=== PATIENT | male | born 1950 | race Caucasian/White ===

== ENCOUNTER 2024-02-02 10:13 | Day surgery (SDC) | payer BC, SELFPAY ==
[2024-02-02 10:40] VITALS: BMI 29.3
[2024-02-02 10:52] LABS: INR 1.07; Prothrombin Time 11.3 sec (9.0-11.6)
[2024-02-02 10:54] LABS: Partial Thromboplastin Time 28.5 sec (22.3-36.2)
--- NOTE | 2024-02-02 11:12 | ECG_ITS ---
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
[2024-02-02 11:14] VITALS: BP 155/97; PULSE 65; TEMP 36.3; O2SAT 97; BMI 29.3
[2024-02-02] MEDS: KETOROLAC TROMETHAMINE 30 MG/ML VIAL IVP (11:26)
[2024-02-02] MEDS: LACTATED RINGER'S SOLUTION 1,000 ML 50 ML IV (11:49)
--- NOTE | 2024-02-02 13:21 | W.PC.ACHO ---
Registration Status: REG SDC Primary Language: Ethiopian Preferred Language: Active Medications Generic Name Dose Route Start Last Admin Trade Name Freq PRN Reason Stop Dose Admin Lactated Ringer's 1,000 mls @ 50 mls/hr 02/02/24 12:00 02/02/24 11:49 Lactated Ringers IV 50 mls/hr .Q20H EMY Administration IV Insertion/Site Date of IV Line Insertion [22g 02/02/24 left Forearm] IV Insertion Time [22g left 11:00 Forearm] Respiratory Pulse Oximetry 97 Oxygen Delivery Method Room Air Bowels Date of Last Bowel Movement 02/01/24
--- NOTE | 2024-02-02 13:21 | SUR.PREOP ---
PT HAS NEW DIAGNOSIS OF AFIB ON EKG. ANESTHESIA DISCUSSED WITH PT AND SURGEON. OR CANCELLED. PT TO ER PER CART AT 1310. PPooja ELLER RN
[2024-02-02 13:29] LABS: Troponin I High Sensitivity 11.9 pg/mL (4.0-76.1)
== END 2024-02-02 11:30 | disposition home or self-care (01) ==
PROVIDERS: Anesthesiology; PCP Internal Medicine; Visit Provider Urology
DX: N20.1 Calculus of ureter (principal); Z53.8 Procedure and treatment not carried out for other reasons; I48.91 Unspecified atrial fibrillation; Z96.659 Presence of unspecified artificial knee joint; Z87.891 Personal history of nicotine dependence; K76.89 Other specified diseases of liver; Z79.02 Long term (current) use of antithrombotics/antiplatelets
CPT/HCPCS: 52353; 36415; 71045; 80048; 83880; 84443; 84484; 85025; 85610; 85730; 93005; 99285

== ENCOUNTER 2024-02-02 13:12 | Emergency (ER) | payer BC, SELFPAY ==
[2024-02-02] VITALS (17 sets, daily range): BP systolic 123–143; BP diastolic 73–108; PULSE 89–118; TEMP 36.7; O2SAT 95–97; BMI 29.2
--- NOTE | 2024-02-02 13:21 | ECG_ITS ---
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
--- NOTE | 2024-02-02 13:22 | XR_ITS ---
The [address] [address] Patient Name: SANKET LUCIO MRN: [id number] date: 1950 Sex: M Assigned Patient Location: ED.MAIN Current Patient Location: ED.MAIN Accession/Order Number: [id number] Exam Date: 02/02/2024 13:30 Report Date: 02/02/2024 13:53 At the request of: MAGEN BINGHAM Procedure: XR chest 1V EXAMINATION: XR chest 1V HISTORY: New onset A-fib COMPARISON: No relevant comparison available. FINDINGS: LUNGS: Mild haziness within left lung base adjacent the heart and diaphragm margin. VASCULATURE: No increased pulmonary vasculature. PLEURA: No pneumothorax, effusion, or pleural thickening. CARDIAC: Borderline cardiomegaly. MEDIASTINUM: No visible mass or adenopathy. BONES: No fracture or visible bone lesion. OTHER: Negative. XR/XR chest 1V IMPRESSION: 1. Trace amount of lingular infiltrates versus prominent pericardial fat pad. No prior studies for comparison. Electronically authenticated by: ALBERT OLMOS Date: 02/02/2024 13:53
--- NOTE | 2024-02-02 13:24 | ED_ITS ---
HPI - Arrhythmia/Palpitations General Chief Complaint: Arrhythmia/Palpitations Stated Complaint: AFIB Time Seen by Provider: 02/02/24 13:13 Source: patient and family Mode of arrival: Cart History of Present Illness HPI narrative: 73-year-old male presents to the emergency department for an irregular heartbeat. He was sent from surgery, he was going to have cystoscopy today but was noted to have an irregular heartbeat. He has no history of atrial fibrillation. He has no palpitations or shortness of breath or chest pain. He does not feel dizzy or lightheaded. Related Data Home Medications ?Medication ?Instructions ?Recorded ?Confirmed amlodipine 5 mg tablet mg 02/02/24 aspirin 81 mg capsule 81 mg PO DAILY 02/02/24 02/02/24 ciprofloxacin HCl 500 mg tablet mg 02/02/24 hydrochlorothiazide 12.5 mg tablet mg 02/02/24 lisinopril 20 mg tablet mg 02/02/24 Allergies Allergy/AdvReac Type Severity Reaction Status Date / Time adhesive tape Allergy Verified 02/02/24 11:06 Review of Systems ROS Narrative A ten point review of systems is negative except as noted above. [facility] Medical History (Updated 02/02/24 @ 15:11 by Candido Reno MD) DVT (deep venous thrombosis) ?I82.409 - Acute embolism and thrombosis of unspecified deep veins of unspecified lower extremity (ICD-10) TIA (transient ischemic attack) ?G45.9 - Transient cerebral ischemic attack, unspecified (ICD-10) Surgical History (Updated 02/02/24 @ 11:00 by Francesca Bernard) History of tonsillectomy ?Z90.89 - Acquired absence of other organs (ICD-10) History of total bilateral knee replacement ?Z96.653 - Presence of artificial knee joint, bilateral (ICD-10) Family History (Updated 02/02/24 @ 11:01 by Francesca Bernard) Other Family history of cancer Family history of hypertension Social History (Updated 02/02/24 @ 11:02 by Francesca Meyers) Within the past year, how often did you have a drink containing alcohol: 4 or more times a week Within the past year, how many standard drinks containing alcohol did you have on a typical day: 1 or 2 Total score: 0 Score interpretation: A score less than 4 is consistent with normal alcohol consumption. Smoking status: Former smoker Non-prescribed substance use: denies use Previous occupational history: retired Highest level of school completed/degree received: Bachelor's degree Exam Narrative Exam Narrative: Nurses note and vital signs reviewed and patient is not hypoxic. General: The patient appears well and in no apparent distress. Patient is resting comfortably on cart. Skin: Warm, dry, no pallor noted. There is no rash noted. Head: Normocephalic, atraumatic Eye: Normal conjunctiva, no drainage Ears, Nose, Mouth, and Throat: oral mucosa is moist. Nares patent. Cardiovascular: Irregularly irregular, not tachycardic Respiratory: Lungs are clear with equal breath sounds Back: non-tender GI: Soft and nontender Musculoskeletal: The patient has no evidence of calf tenderness, no pitting edema, symmetrical pulses noted bilaterally Neurological: A&O, normal speech Psychiatric: Cooperative Constitutional Vital Signs, click to edit/add: Last Vital Signs Temp 98.0 F 02/02/24 13:14 Pulse 113 H 02/02/24 13:14 Resp 18 02/02/24 13:14 BP 123/73 02/02/24 13:14 Pulse Ox 97 02/02/24 13:14 O2 Del Method Room Air 02/02/24 13:14 Course Vital Signs Vital signs: Vital Signs Temperature 98.0 F 02/02/24 13:14 Pulse Rate 113 H 02/02/24 13:14 Respiratory Rate 18 02/02/24 13:14 Blood Pressure 123/73 02/02/24 13:14 Pulse Oximetry 97 02/02/24 13:14 Oxygen Delivery Method Room Air 02/02/24 13:14 Temperature 98.0 F 02/02/24 13:14 Pulse Rate 113 H 02/02/24 13:14 Respiratory Rate 18 02/02/24 13:14 Blood Pressure 123/73 02/02/24 13:14 Pulse Oximetry 97 02/02/24 13:14 Oxygen Delivery Method Room Air 02/02/24 13:14 MDM - Arrhythmia/Palpitations MDM Narrative Medical decision making narrative: The patient has new onset atrial fibrillation with well-controlled rate. Case discussed with cardiology and follow-up is arranged. No blood thinner was recommended by cardiology at this point. Treatment diagnosis and follow-up were discussed with the patient and his . Differential Diagnosis Differential diagnosis: Likely other (Atrial fibrillation, atrial flutter) Lab Data Attestation: I reviewed the patient's lab results. Labs: Lab Results 02/02/24 Range/Units 13:00 WBC 12.6 H (4.0-11.0) 10^3/uL RBC 4.84 (4.70-6.10) 10^6/uL Hgb 13.6 L (14.0-18.0) g/dL Hct 41.9 L (42.0-54.0) % MCV 86.6 (80.0-94.0) fL MCH 28.1 (25.9-34.0) pg MCHC 32.5 (29.9-35.2) g/dL RDW 15.8 H (11.0-15.0) % Plt Count 181 (150-450) 10^3/uL MPV 10.6 (9.5-13.5) fL Neut % (Auto) 87.0 H (43.0-75.0) % Lymph % (Auto) 6.0 L (20.5-60.0) % [place] % (Auto) 6.3 (1.7-12.0) % Eos % (Auto) 0.1 L (0.9-7.0) % Baso % (Auto) 0.2 (0.2-2.0) % Neut # (Auto) 11.0 H (1.4-6.5) 10^3/uL Lymph # (Auto) 0.8 L (1.2-3.8) 10^3/uL [place] # (Auto) 0.8 (0.3-0.8) 10^3/uL Eos # (Auto) 0.0 (0.0-0.7) 10^3/uL Baso # (Auto) 0.0 (0.0-0.1) 10^3/uL Abs Immat Gran (auto) 0.05 H (0.00-0.03) 10^3/uL Imm/Tot Granulo (auto) 0.4 (0.0-0.5) % Sodium 144 (136-145) mmol/L Potassium 3.8 (3.5-5.1) mmol/L Chloride 108 H (98-107) mmol/L Carbon Dioxide 25.9 (21.0-32.0) mmol/L Anion Gap 13.9 BUN 28.0 H (7.0-18.0) mg/dL Creatinine 1.79 H (0.70-1.30) mg/dL Est GFR ( Amer) 45 L (>=60) Est GFR (Non-Af Amer) 37 L (>=60) BUN/Creatinine Ratio 15.6 Glucose 126 H (74-106) mg/dL Calcium 8.6 (8.5-10.1) mg/dL Imaging Data Chest x-ray: Radiologist's impression: ITS Impressions Chest X-Ray 02/02/24 13:22 IMPRESSION: 1. Trace amount of lingular infiltrates versus prominent pericardial fat pad. No prior studies for comparison. Electronically authenticated by: ALBERT OLMOS Date: 02/02/2024 13:53 ECG Data Attestation: I personally reviewed and interpreted this ECG as follows: (EKG on my interpretation shows atrial fibrillation with a rate of 108) Discharge Plan Discharge Stand Alone Forms: Portal Instructions Chief Complaint: Arrhythmia/Palpitations Clinical Impression: Atrial fibrillation, new onset Patient Disposition: Home, Self-Care Time of Disposition Decision: 15:11 Condition: Good Mode of Transportation: Private Vehicle Prescriptions / Home Meds: No Action lisinopril 20 mg tablet amlodipine 5 mg tablet ciprofloxacin HCl 500 mg tablet hydrochlorothiazide 12.5 mg tablet aspirin 81 mg capsule 81 mg PO DAILY Print Language: Jamaican Instructions: A-fib (Atrial Fibrillation) (ED) Referrals: Nena Andrade MD [Physician] - 1 week MICHELLE ANAYA [Primary Care Provider] - 1 week
[2024-02-02 13:27] LABS: Basophils Percent Auto 0.2 % (0.2-2.0); Eosinophils Percent Auto 0.1 % (0.9-7.0); Hematocrit 41.9 % (42.0-54.0); Hemoglobin 13.6 g/dL (14.0-18.0); Immature Granulocytes Abs Auto 0.05 10^3/uL (0.00-0.03); Immature Granulocytes Pct Auto 0.4 % (0.0-0.5); Lymphocytes Absolute Auto 0.8 10^3/uL (1.2-3.8); Mean Corpuscular HGB Conc 32.5 g/dL (29.9-35.2); Mean Corpuscular Hemoglobin 28.1 pg (25.9-34.0); Mean Corpuscular Volume 86.6 fL (80.0-94.0); Mean Platelet Volume 10.6 fL (9.5-13.5); Monocytes Absolute Auto 0.8 10^3/uL (0.3-0.8); Monocytes Percent Auto 6.3 % (1.7-12.0); Platelet Count 181 10^3/uL (150-450); Red Blood Count 4.84 10^6/uL (4.70-6.10); Red Cell Distribution Width 15.8 % (11.0-15.0); White Blood Count 12.6 10^3/uL (4.0-11.0)
[2024-02-02 13:36] LABS: Anion Gap 13.9; BUN Creatinine Ratio 15.6; Calcium 8.6 mg/dL (8.5-10.1); Carbon Dioxide 25.9 mmol/L (21.0-32.0); Chloride 108 mmol/L (98-107); Estimated GFR (African America 45 (>=60); Estimated GFR (Non-African Ame 37 (>=60); Glucose 126 mg/dL (74-106); Potassium 3.8 mmol/L (3.5-5.1); Sodium 144 mmol/L (136-145)
== END 2024-02-02 15:29 | disposition home or self-care (01) ==
PROVIDERS: Emergency Provider Emergency Medicine; PCP Internal Medicine
DX: I48.91 Unspecified atrial fibrillation (principal)
CPT/HCPCS: 36415; 71045; 80048; 84443; 85025; 93005; 99285